=== PATIENT | male | born 1940 | race Two or more races ===

== ENCOUNTER 2021-09-26 08:29 | Inpatient (IN) | payer OTHER, MEDICAID ==
[~2021-09-26] VITALS: Ht 180.3 cm; Wt 89.8 kg
[~2021-09-26 08:29] MED LIST: ASPI81CH43; BENAZEPRIL; DOXYZOSIN; HYDR12.56
[2021-09-26 09:22] LABS: Urine Bacteria NONE SEEN /hpf (None Seen); Urine Blood Negative /uL (Negative); Urine Specific Gravity 1.007 (1.001-1.035); Urine WBC 5 /hpf (0 - 3)
[2021-09-26 10:20] LABS: Basophils # (auto) 0 10 ^3/uL (0-0.2); Basophils % (auto) 0.6 % (0.0-2.0); Eosinophils # (auto) 0.1 10 ^3/uL (0-0.8); Eosinophils % (auto) 2.2 % (0.0-7.0); Hematocrit 49.6 % (41.0-53.0); Hemoglobin 16.2 g/dL (13.5-17.5); Lymphocytes # (auto) 1.5 10 ^3/uL (0.4-5.4); Lymphocytes % (auto) 27.2 % (10.0-50.0); Mean Corpuscular Hemoglobin 29.3 pg (28.0-32.0); Mean Corpuscular Hgb Conc. 32.7 g/dL (32.0-36.0); Mean Corpuscular Volume 89.6 fL (80.0-100.0); Monocytes # (auto) 0.3 10 ^3/uL (0-1.3); Neutrophils # (auto) 3.6 10 ^3/uL (1.6-8.6); Nucleated Red Blood Cells % 0.2 %; Red Blood Cells 5.53 10^6/uL (4.5-5.90); Red Cell Distribution Width 14.5 % (11.8-14.3); White Blood Cell 5.5 10^3/uL (4.4-10.8)
[2021-09-26] MEDS ORDERED: LEVO-28 PO (10:40)
[2021-09-26 10:43] LABS: Albumin 4.2 g/dL (3.4-5.0); Calcium 9.5 mg/dL (8.5-10.1); Potassium 3.8 mmol/L (3.5-5.1)
[2021-09-26 10:49] LABS: BUN/Creatinine Ratio 14.9; Bilirubin, Total 0.7 mg/dL (0.2-1.0); Total Protein 7.7 g/dL (6.4-8.2)
[2021-09-26] MEDS ORDERED: AZITHROMYCIN 500MG/ 250ML 250 ML IV ONE (11:00)
[2021-09-26] MEDS ORDERED: ENOXAPARIN SOD 100 MG/1 ML SYRINGE SC ONE (11:00)
[2021-09-26] MEDS ORDERED: cefTRIAXone 1GM/50ML D5W 50 ML IV ONE (11:00)
[2021-09-27] MEDS ORDERED: DEXTROSE (50%) 50ML SYRG IV PRN (02:45)
[2021-09-27] MEDS ORDERED: ACETAMINOPHEN 325 MG TAB PO PRN (02:45)
[2021-09-27] MEDS ORDERED: MORPHINE SULFATE INJECTION 2 MG/ML SYRG IV PRN (02:45)
[2021-09-27] MEDS ORDERED: cloNIDine HCL 0.1 MG TAB PO PRN (02:45)
[2021-09-27] MEDS ORDERED: NITROGLYCERIN 0.4 MG SL TAB SL PRN (02:45)
[2021-09-27] MEDS ORDERED: ONDANSETRON HCL 4 MG/2 ML VIAL IV PRN (02:45)
[2021-09-27 03:47] LABS: Basophils # (auto) 0 10 ^3/uL (0-0.2); Basophils % (auto) 0.5 % (0.0-2.0); Eosinophils # (auto) 0.1 10 ^3/uL (0-0.8); Hematocrit 45.5 % (41.0-53.0); Hemoglobin 15.2 g/dL (13.5-17.5); Lymphocytes # (auto) 2.5 10 ^3/uL (0.4-5.4); Lymphocytes % (auto) 35.8 % (10.0-50.0); Mean Corpuscular Hemoglobin 29.6 pg (28.0-32.0); Mean Corpuscular Hgb Conc. 33.3 g/dL (32.0-36.0); Mean Corpuscular Volume 88.8 fL (80.0-100.0); Monocytes # (auto) 0.4 10 ^3/uL (0-1.3); Monocytes % (auto) 5.8 % (0.0-12.0); Neutrophils # (auto) 3.9 10 ^3/uL (1.6-8.6); Neutrophils % (auto) 55.9 % (37.0-80.0); Nucleated Red Blood Cells % 0.1 %; Red Blood Cells 5.12 10^6/uL (4.5-5.90); Red Cell Distribution Width 14.6 % (11.8-14.3)
[2021-09-27 04:07] LABS: BUN/Creatinine Ratio 23.6; Calcium 9.2 mg/dL (8.5-10.1); Potassium 3.6 mmol/L (3.5-5.1)
[2021-09-27] MEDS: ACCU-CHEK COMFORT CURVE STRIP VI SCH ×3 (06:47→17:41)
[2021-09-27] MEDS: InsuLIN REG 1unit/0.01ml Soln (100units/ml) SC SCH ×4 (06:47→22:00)
[2021-09-27] MEDS: HCTZ 25 MG TAB PO SCH (10:00)
[2021-09-27] MEDS: ASPirin 81 mg TAB PO SCH (10:00)
[2021-09-27] MEDS: ZINC SULFATE 220mg CAP or TAB PO SCH (10:00)
[2021-09-27] MEDS ORDERED: LISINOPRIL 10 MG TAB PO SCH (10:00)
[2021-09-27] MEDS: ENOXAPARIN SOD 40 MG/0.4 ML SYRINGE SC SCH (10:01)
[2021-09-27] MEDS ORDERED: hydrALAZINE HCL 20 MG/ML VL IV PRN (10:30)
[2021-09-27 12:19] LABS: Cholesterol 111 mg/dL (< 200)
[2021-09-27 12:22] LABS: HDL Cholesterol 30 mg/dL (40-59); LDL Cholesterol 67 mg/dL (< 100); Triglycerides 90 mg/dL (< 150)
[2021-09-27] MEDS ORDERED: TAMSULOSIN HYDROCHLORIDE 0.4 MG CAP PO SCH (18:00)
[2021-09-27] MEDS ORDERED: ATORVASTATIN 20 MG TAB PO SCH (22:00)
[2021-09-27] MEDS ORDERED: AZITHROMYCIN 500MG/ 250ML 250 ML IV SCH (22:00)
[2021-09-28] MEDS: ACCU-CHEK COMFORT CURVE STRIP VI SCH ×3 (00:09→14:01)
[2021-09-28 02:51] VITALS: BP 138/74
[2021-09-28] MEDS ORDERED: ASPI1TAB20 PO (03:56)
[2021-09-28] MEDS ORDERED: GABA100C9 PO (03:56)
[2021-09-28] MEDS ORDERED: ATOR10TA PO (03:56)
[2021-09-28] MEDS ORDERED: FINA5TAB4 PO (03:56)
[2021-09-28] MEDS ORDERED: METO25TA5 PO (03:56)
[2021-09-28] MEDS ORDERED: CHOL20007 OR (03:56)
[2021-09-28] MEDS ORDERED: ALBUAER3 IN (03:56)
[2021-09-28] MEDS ORDERED: PRED1SUS4 OP (03:56)
[2021-09-28] MEDS: InsuLIN REG 1unit/0.01ml Soln (100units/ml) SC SCH ×2 (06:33→11:30)
[2021-09-28 09:00] VITALS: BP 156/79
[2021-09-28] MEDS: ASPirin 81 mg TAB PO SCH (09:06)
[2021-09-28] MEDS: ZINC SULFATE 220mg CAP or TAB PO SCH (09:06)
[2021-09-28] MEDS: HCTZ 25 MG TAB PO SCH (09:07)
[2021-09-28] MEDS: ENOXAPARIN SOD 40 MG/0.4 ML SYRINGE SC SCH (09:08)
[2021-09-28] MEDS ORDERED: amLODIPine BESYLATE 5 MG TAB PO SCH (10:00)
[2021-09-28] MEDS ORDERED: LISINOPRIL 20 MG TAB PO SCH (10:00)
[2021-09-28 12:25] VITALS: BP 140/70
== END 2021-09-28 15:39 | disposition home or self-care (01) | DRG 280 ==
LOC: ER 08:29 → TELE 09-27 02:42 → TELE-WESTW 09-27 20:43
PROVIDERS: ADMIT Nurse Practitioner; ATTEND Family Medicine
DX: I16.0 Hypertensive urgency (principal); J18.9 Pneumonia, unspecified organism; I21.A1 Myocardial infarction type 2; I44.0 Atrioventricular block, first degree; I10 Essential (primary) hypertension; N40.0 Benign prostatic hyperplasia without lower urinary tract symptoms; R00.1 Bradycardia, unspecified; R53.81 Other malaise; Z20.822 Contact with and (suspected) exposure to COVID-19; E78.5 Hyperlipidemia, unspecified; E11.42 Type 2 diabetes mellitus with diabetic polyneuropathy; Z79.899 Other long term (current) drug therapy
CPT/HCPCS: 36415; 70450; 71045; 80048; 80053; 80061; 81001; 82962; 83036; 83880; 84443; 84484; 85025; 87426; 93005; 93306; 93886; 96365; 96367; 96372; G0378; J0696